=== PATIENT | female | born 1955 | race Caucasian/White ===

== ENCOUNTER 2017-10-01 06:25 | Day surgery (SDC) | payer BC ==
[~2017-10-01] VITALS: Ht 162.6 cm; Wt 77.8 kg
[~2017-10-01 06:25] MED LIST: ESCI20TA PO; PREM3 PO; ZOLP10TA2 PO
[2017-10-01] MEDS ORDERED: SODIUM CHLORIDE 0.9% 1000ML 1,000 ML IV ONE (06:26)
[2017-10-01 07:03] VITALS: BP 114/55
[2017-10-01] MEDS ORDERED: FENTANYL CITRATE PF 50 MCG/1 ML 2ML VIAL ONE (07:26)
[2017-10-01] MEDS ORDERED: LIDOCAINE HCL 2% 20ML ONE (07:26)
[2017-10-01] MEDS ORDERED: GLYCOPYRROLATE 0.2 MG/ML 5 ML VIAL ONE (07:26)
[2017-10-01] MEDS ORDERED: PROPOFOL 10 MG/ML 20ML VIAL IV ONE (07:26)
[2017-10-01 07:49] VITALS: BP 89/47
== END 2017-10-01 08:25 | disposition home or self-care (01) ==
LOC: ENDO 06:25 → DAH 06:25 → ENDO 08:25
PROVIDERS: ATTEND Internal Medicine Gastroenterology
DX: Z12.11 Encounter for screening for malignant neoplasm of colon (principal); G43.909 Migraine, unspecified, not intractable, without status migrainosus; F32.9 Major depressive disorder, single episode, unspecified; Z98.890 Other specified postprocedural states; Z79.899 Other long term (current) drug therapy
CPT/HCPCS: 45378; A4606; J2704; J3010; J3490 ×2; J7030

== ENCOUNTER → 2025-01-09 | Outpatient (CLI) | payer MEDICARE, OTHER ==
[~2025-01-09] MED LIST changes: +ZOLP-685 PO; -ZOLP10TA2 PO
--- NOTE | 2025-01-10 19:13 | HMCIMG ---
EXAM: MR Lumbar Spine Without Intravenous Contrast. CLINICAL HISTORY: Radiculopathy. Lumbar region. TECHNIQUE: Magnetic resonance images of the lumbar spine in multiple planes. CONTRAST: None. COMPARISON: None. FINDINGS: For this examination, spinal levels were labeled assuming five non-rib bearing, lumbar-type vertebrae with the inferior labeled L5. No acute fracture. Normal lordotic curvature. Multilevel spondylosis is evident by marginal osteophytes and facet joint arthropathy. Multilevel disc desiccation noted. Mild to moderate degenerative disc height reduction at the L5-S1 level. Normal vertebral body and remaining disc heights. Small hemangioma noted in the L4 vertebral body. Lobulated T2 hypointense benign lesion in the right iliac bone, likely bone island. Conus medullaris terminates at the T12 level. No abnormal epidural masses. The surrounding soft tissues are unremarkable. Individual spinal levels are described as follows: T12-L1: 3 mm central disc bulge with 18 mm caudal disc migration causing mild indentation on the anterior thecal sac. No neural foraminal or lateral recess stenosis. L1-L2: 4 mm disc osteophyte complex bulge causing mild indentation on the anterior thecal sac. No neural foraminal or lateral recess stenosis. L2-L3: 3 mm disc osteophyte complex bulge causing mild indentation on the anterior thecal sac. No neural foraminal or lateral recess stenosis. L3-L4: 3 mm disc osteophyte complex bulge causing mild indentation on the anterior thecal sac. No neural foraminal or lateral recess stenosis. L4-L5: 5 mm disc osteophyte complex bulge, ligamentum flavum thickening, and facet joint arthropathy causing moderate canal narrowing with compression of the cauda equina, moderate to severe bilateral lateral recess narrowing with compression of the traversing bilateral L5 nerve roots, and mild bilateral foraminal narrowing. L5-S1: 5 mm right predominant disc osteophyte complex bulge and facet joint arthropathy causing mild indentation on the anterior thecal sac, moderate bilateral lateral recess narrowing with indentation on the traversing S1 nerve roots, and mild bilateral foraminal narrowing. IMPRESSION: Mild multilevel spondylosis. Mild to moderate degenerative disc height reduction at the L5-S1 level. Mild indentation on the anterior thecal sac at the T12-L1, L1-L2, L2-L3, and L3-L4 levels. Moderate canal narrowing with compression of the cauda equina, moderate to severe bilateral lateral recess narrowing with compression of the traversing bilateral L5 nerve roots, and mild bilateral foraminal narrowing at the L4-L5 level. Mild indentation on the anterior thecal sac, moderate bilateral lateral recess narrowing with indentation on the traversing S1 nerve roots, and mild bilateral foraminal narrowing at the L5-S1 level. /[place]
--- NOTE | 2025-01-10 19:13 | HMCIMG ---
EXAMINATION: NONCONTRAST MR EXAMINATION OF THE LEFT KNEE. CLINICAL HISTORY: Left knee pain. COMPARISON: None provided. TECHNIQUE: Multiplanar, multisequence MR imaging of the left knee. FINDINGS: In the medial compartment, the meniscus is intact. There is no focal chondrosis or subchondral bone marrow edema. In the lateral compartment, the meniscus is intact. There is no focal chondrosis or subchondral bone marrow edema. In the patellofemoral compartment, there is intermediate to high grade medial patellar and trochlear chondral thinning and fissuring with subchondral cystic changes. The anterior and posterior cruciate ligaments are intact. Iliotibial band, fibular collateral ligament, biceps femoris tendon, conjoined tendon, and popliteus tendon are intact. The medial collateral ligament is intact. The extensor mechanism and patellar retinaculum are intact. There is mild knee joint effusion. There is no bone marrow signal abnormality seen to suggest fracture, avascular necrosis, or osteomyelitis. The musculature surrounding the knee demonstrate normal bulk and signal. IMPRESSION: 1. 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 2. Mild knee joint effusion. /[place]
== END | disposition home or self-care (01) ==
LOC: RAH 12:56
PROVIDERS: ATTEND Nurse Practitioner Adult Health
DX: M51.16 Intervertebral disc disorders with radiculopathy, lumbar region (principal); M51.35 Other intervertebral disc degeneration, thoracolumbar region; M51.379 Other intervertebral disc degeneration, lumbosacral region without mention of lumbar back pain or lower extremity pain; M48.07 Spinal stenosis, lumbosacral region; M22.42 Chondromalacia patellae, left knee; M25.862 Other specified joint disorders, left knee; M25.462 Effusion, left knee; M47.26 Other spondylosis with radiculopathy, lumbar region; M25.78 Osteophyte, vertebrae; D18.09 Hemangioma of other sites; G83.4 Cauda equina syndrome; M25.562 Pain in left knee
CPT/HCPCS: 72148; 73721